=== PATIENT | female | born 1935 | race Caucasian/White ===

== ENCOUNTER 2020-03-17 06:33 | Observation (INO) ==
[2020-03-10 15:21] LABS: Appearance,Urine CLEAR; Bacteria,Urine MOD /hpf (0); Bilirubin,Urine NEG (NEG); Color,Urine YELLOW; Culture Indicated,Urine YES; Glucose,Urine (UA) NEGATIVE (NEG); Ketones,Urine 5/TR mg/dL (NEG); Leukocyte Esterase,Urine NEG /uL (NEG); Mucus,Urine FEW /hpf (0); Nitrate,Urine NEG (NEG); Protein,Urine NEG (NEG); Specific Gravity,Urine 1.024 (1.000-1.035); Urine Blood 0.03 mg/dL (<0.03); Urine Hyaline Cast 2 /lpf (0-2); Urine RBC 1 /hpf (0-1); Urine Squamous Epithelial Cell 2 /hpf (0-4); Urine Transitional Epi Cells < 1 /hpf (0-2); Urine WBC 2 /hpf (0-4); Urobilinogen,Urine NEG (NEG)
[2020-03-10 18:00] LABS: Basophils # (Auto) 0.04 K/mcL (0.00-0.30); Basophils % (Auto) 0.6 % (0.0-2.0); Eosinophils % (Auto) 1.4 % (0.0-7.0); Granulocytes % (Auto) 69.2 % (38.0-78.0); Hematocrit 40.7 % (34.1-44.9); Hemoglobin 12.7 g/dL (11.2-15.7); Lymphocytes % (Auto) 23.4 % (15.5-49.0); Mean Cell Volume 93.3 fL (80.0-100.0); Mean Corpuscular HGB Conc 31.2 g/dL (31.0-36.0); Mean Platelet Volume 10.3 fL (7.4-10.4); Monocytes # (Auto) 0.39 K/mcL (0.10-0.90); Monocytes % (Auto) 5.4 % (1.0-12.0); Platelet Count 268 K/mcL (140-440); RBC 4.36 M/mcL (3.59-5.38); Red Cell Distribution Width 14.8 % (11.5-14.5); WBC 7.3 K/mcL (4.50-11.00)
[2020-03-10 18:08] LABS: ALT/SGPT 12 U/l (0-40); AST/SGOT 20 U/l (0-37); Albumin 4.3 gm/dL (3.2-5.2); Albumin/Globulin Ratio 1.9 (1.0-2.3); Alkaline Phosphatase 64 U/L (39-117); Bilirubin,Total 0.4 mg/dL (0.0-1.0); Blood Urea Nitrogen 19 mg/dl (8-23); Calcium 9.4 mg/dl (8.6-10.4); Carbon Dioxide 22 mmol/L (22-30); Chloride 104 mmol/L (96-108); Globulin 2.3 gm/dL (2.2-3.7); Glomerular Filtration Rate 84; Glucose 80 mg/dL (70-105)
[2020-03-10 18:14] LABS: Estimated Average Glucose(eAG) 100 mg/dL; Hemoglobin A1C 5.1 % HGB (4.0-6.0)
[2020-03-10 18:21] LABS: INR 3.2 (0.9-1.1); Prothrombin Time 33.5 sec (11.9-14.5)
[~2020-03-17 06:33] MED LIST: 0.9 % SODIUM CHLORIDE 9 ML, KETOROLAC 30 MG, ROPIVACAINE HCL/PF 49.5 ML, EPINEPHrine 0.... IJ SCH; CELECOXIB 200 MG CAPSULE PO SCH; PREGABALIN 75 MG CAPSULE PO SCH; ceFAZolin 2 GM in DEXTROSE 5% IN WATER 50 ML IV SCH; oxyCODONE 10 MG TAB.ER.12H PO SCH
[2020-03-17] MEDS ORDERED: IPRATROPIUM/ALBUTEROL 3 ML AMPUL.NEB NEB PRN ×2 (07:00→11:52)
[2020-03-17] MEDS ORDERED: SCOPOLAMINE 1 PATCH PATCH TOPICAL PRN (07:00)
[2020-03-17 07:49] LABS: POC INR 1.5 (0.9-1.2); POC Pro Time 18.2 sec (11.9-14.5)
[2020-03-17] MEDS ORDERED: TRANEXAMIC ACID 1,000 MG/10 ML VIAL IV ONE ×2 (09:14→10:40)
[2020-03-17] MEDS ORDERED: ONDANSETRON 4 MG/2 ML VIAL IV ONE (09:14)
[2020-03-17] MEDS ORDERED: GLYCOPYRROLATE 0.2 MG/ML VIAL IV ONE (09:14)
[2020-03-17] MEDS ORDERED: DEXAMETHASONE 10 MG/ML VIAL IV ONE (09:14)
[2020-03-17] MEDS ORDERED: PHENYLEPHRINE 10 MG/ML VIAL IV ONE (09:14)
[2020-03-17] MEDS ORDERED: PROPOFOL 200 MG/20 ML VIAL IV ONE (09:14)
[2020-03-17] MEDS ORDERED: KETAMINE 100 MG/ML ML IV ONE (09:14)
[2020-03-17] MEDS ORDERED: MIDAZOLAM 2 MG/2 ML VIAL IV ONE (09:14)
[2020-03-17] MEDS ORDERED: LIDOCAINE HCL/PF 100 MG/5 ML SYRINGE IV ONE (09:14)
[2020-03-17] MEDS ORDERED: ROPIVACAINE HCL/PF 20 ML VIAL IJ ONE (09:14)
[2020-03-17] MEDS ORDERED: POLYETHYLENE GLYCOL 3350 17 GM PACKET PO PRN (10:40)
[2020-03-17] MEDS ORDERED: BENZOCAINE/MENTHOL 1 LOZENGE PO PRN (10:40)
[2020-03-17] MEDS ORDERED: BISACODYL 10 MG SUPP.RECT PR PRN (10:40)
[2020-03-17] MEDS ORDERED: MAGNESIUM HYDROXIDE 30 ML ORAL.SUSP PO PRN (10:40)
[2020-03-17] MEDS ORDERED: ONDANSETRON 4 MG/2 ML VIAL IV PRN ×2 (10:40→11:52)
[2020-03-17] MEDS ORDERED: HYDROmorphone 1 MG/ML SYRINGE IV PRN (10:40)
[2020-03-17] MEDS ORDERED: FLEETS ADULT ENEMA PR PRN (10:40)
--- NOTE | 2020-03-17 10:40 | Brief Operative Note ---
Brief Operative Note Date of procedure: 03/17/20 Pre-op diagnosis: Left knee severe DJD Post-op diagnosis: same Procedure: Left total knee arthroplasty Grafts/Implants: Yes ([place] Triathlon CR 3 femur, 4 tibia, 10mm CR insert, 33 patella) Anesthesia: spinal and GLMA Findings: hemarthrosis, severe arthritis Complications: none Surgeon: Octaviano Quiroga Circle Edger: Chavo Hernandez Estimated blood loss (cc): 30 Specimens Removed/Pathology: none sent Condition: stable Disposition: PACU
[2020-03-17] MEDS ORDERED: traMADol 50 MG TABLET PO PRN (10:43)
[2020-03-17] MEDS ORDERED: MEPERIDINE 25 MG/ML SYRINGE IV PRN (11:52)
[2020-03-17] MEDS ORDERED: fentaNYL 100 MCG/2 ML VIAL IV PRN (11:52)
[2020-03-17] MEDS ORDERED: ACETAMINOPHEN 1,000 MG/100 ML BOTTLE IV ONE (11:52)
[2020-03-17] MEDS ORDERED: LACTATED RINGERS 1,000 ML IV SCH (12:00)
--- NOTE | 2020-03-17 12:24 | Operative Note ---
DATE OF OPERATION: 03/17/2020 PREOPERATIVE DIAGNOSIS: Left knee severe osteoarthritis. POSTOPERATIVE DIAGNOSIS: Left knee severe osteoarthritis. PROCEDURE PERFORMED: Left total knee arthroplasty placing a [place] Triathlon size 3 cruciate retaining femoral component, size 4 tibial baseplate, a 10 mm X3 CR insert with a 33 mm patellar button. SURGEON: Octaviano Quiroga MD GYM ATTENDANT: Matheus Hernandez PA-C. This provider's expertise and technical skill were required throughout the case. The PA assisted with preoperative coordination, intraoperative retraction, wound closure, dressing and splint application, as well as postoperative documentation and care coordination. SECOND GYM ATTENDANT: Miko Bailon PA-C. This provider's expertise and technical skill were required throughout the case. The PA assisted with preoperative coordination, intraoperative retraction, wound closure, dressing and splint application, as well as postoperative documentation and care coordination. ANESTHESIA: General LMA. DRAINS: None. SPECIMENS: Bone cuts, which were discarded. BLOOD LOSS: 50 mL COMPLICATIONS: None. POSTOPERATIVE CONDITION: Stable. INDICATIONS FOR SURGERY: This is an 84-year-old female who had longstanding progressive worsening severe left knee pain. Radiographs showed [id number] valgus deformed osteoarthritis. FINDINGS AT SURGERY: She had a large hemarthrosis. Post implantation showed good limb alignment, patellar tracking, and joint stability. PROCEDURE IN DETAIL: The patient had been seen preoperatively. Informed consent had been obtained after discussion of risks and benefits of surgery. Risks including, but not limited to, bleeding; infection; injury to nerves, blood vessels, other surrounding structures; anesthetic risks; incomplete or no resolution of symptoms; DVT and pulmonary embolus risks; and the possibility of needing further revision joint surgery. She understood and wished to proceed. Correct operative site was marked and the patient was taken to the operating room. General anesthesia induced. The left lower extremity was carefully prepped and draped in normal sterile fashion. A timeout was performed verifying patient name, operative site, and plan. Esmarch was used to exsanguinate the extremity and tourniquet was inflated. Ioban was used to cover all skin surfaces. A midline incision was made with a scalpel through skin and subcutaneous tissue. Hemostasis was obtained with Bovie cautery. IrriSept was irrigated and then a medial parapatellar arthrotomy made. A hemarthrosis was aspirated. We went ahead and did a subperiosteal exposure of the anterior medial tibia and then removed the medial and lateral menisci. ACL was transected. We also used Bovie to expose the distal anterior cortex of the femur. A drill hole was made in the femur and tibia and then a flexible IM randy was passed up. A 5 degree valgus cut angle with 8 mm resection depth was placed and we pinned a distal cutting block in position. We made our distal femur cut and then marked Doc's line epicondylar axis. A sizer guide was placed and pinned in position. It took 5 degrees external rotation to match her anatomy and she sized to a 3. We drilled the holes and then placed a size 3 4-in-1 block. We made our anterior cut, which was flush, so we went ahead and made our posterior and chamfer cuts. The tibia was subluxed forward and posterior horns of the meniscus removed. The IM randy was passed down with the stylus off the medial side 2 mm. We pinned this into place and then made our tibial cut. This came out just below the worn surface of the lateral tibial plateau. We sized this to a 4 and externally rotated as bone coverage was allowed. We pinned this into place and prepared with the boss reamer and keel punch and then a keeled tibial trial was placed. Femur was elevated and a femur trial was placed and pinned into position. We drilled our peg holes and then trialed the 9 insert. This snapped in fairly easily. The knee was taken into extension and then we measured the patella and then resected, sized this to a 33, which was medialized and then holes drilled. The 33 trial was placed and then the lateral facetectomy was performed with the patella saw. We then checked our range of motion. It was good with good patellar tracking, so we went ahead and removed trial implants. Definitive implants were opened. We irrigated the joint with IrriSept and then antibiotic cement was mixed. We then pulse lavaged copiously with saline and then a CO2 gun was used to clean and dry the cancellous bone surface. We cemented the tibia. Excess cement was removed. We then cemented the femoral component and excess cement removed. A 9 insert trial was placed and the knee was taken into extension and the patellar button was cemented. The joint was filled with IrriSept and then we injected pain cocktail in the pericapsular and subcutaneous tissues. After cement had fully hardened, we pulse lavaged copiously with saline. We flexed the knee up and removed the trial insert. We injected the remainder of the pain cocktail in the posterior medial capsule and I went with a 10 mm insert for a little bit better stability. This was impacted, and the knee was good and stable. We then filled the joint with IrriSept again, after a minute pulse lavaged with saline and the knee was flexed up to about 45 degrees. Interrupted #2 FiberWire [id number] around the superior quadrant of the patella, interrupted #1 Vicryl [id number] was used around the inferior quadrant, and running #1 Vicryl was used for patellar tendon and quad tendon. We then did a final IrriSept irrigation, after a minute final pulse lavage, and then 2-0 Monocryl was used for subcutaneous and silverio for skin. Xeroform and sterile dressing were applied. Tourniquet was released. The patient was awakened, extubated, and transferred to recovery in stable condition. [id number]:[email or web address] Job ID: [id number] Doc ID: [id number] Octaviano Quiroga MD
[2020-03-17] MEDS: 0.9 % SODIUM CHLORIDE 1,000 ML IV SCH (12:33)
[2020-03-17] MEDS: KETOROLAC 15 MG/ML VIAL IV SCH ×3 (12:49→23:43)
--- NOTE | 2020-03-17 12:58 | XRay Report ---
CLINICAL INFORMATION: Post-op total knee COMPARISON: None. FINDINGS: Total knee prostheses is anatomically aligned. No osseous abnormality. Moderate periarticular gas and soft tissue swelling seen. IMPRESSION: Total knee prosthesis in anatomic alignment. Interpreted and Authenticated by: Maldonado Gonzalez 03/17/20
[2020-03-17] MEDS ORDERED: PRAMIPEXOLE 0.25 MG TABLET PO ONE (13:10)
[2020-03-17] MEDS: 0.9 % SODIUM CHLORIDE 10 ML SYRINGE IV SCH ×2 (13:11→22:43)
[2020-03-17] MEDS: oxyCODONE/APAP 5/325MG TABLET PO PRN ×3 (13:26→21:43)
[2020-03-17] MEDS: ceFAZolin 1 GM VIAL IV SCH (17:22)
[2020-03-17] MEDS: PRAMIPEXOLE 0.25 MG TABLET PO SCH (20:32)
[2020-03-17] MEDS: DOCUSATE SODIUM 100 MG CAPSULE PO SCH (20:32)
[2020-03-17] MEDS: SENNOSIDES 1 TABLET PO SCH (20:32)
[2020-03-18] MEDS: ceFAZolin 1 GM VIAL IV SCH (01:13)
[2020-03-18] MEDS: 0.9 % SODIUM CHLORIDE 1,000 ML IV SCH ×2 (02:01→12:55)
[2020-03-18] MEDS: oxyCODONE/APAP 5/325MG TABLET PO PRN ×4 (03:49→23:27)
[2020-03-18] MEDS: KETOROLAC 15 MG/ML VIAL IV SCH ×4 (05:37→23:50)
[2020-03-18] MEDS: 0.9 % SODIUM CHLORIDE 10 ML SYRINGE IV SCH ×2 (05:38→13:47)
[2020-03-18 06:52] LABS: Hematocrit 30.6 % (34.1-44.9); Hemoglobin 9.6 g/dL (11.2-15.7)
[2020-03-18] MEDS: DOCUSATE SODIUM 100 MG CAPSULE PO SCH ×2 (08:44→20:37)
[2020-03-18] MEDS: WARFARIN 5 MG TABLET PO SCH (08:44)
--- NOTE | 2020-03-18 09:37 | Discharge Summary ---
Discharge Provider Provider Patient information: Note initiated : 03/18/20 at 9:36 am Service Date, if different from initiated Date: [] Patient: Macrina Walsh 84 y/o F admitted on for Left Total Knee Arthroplasty Augustus. Chief Complaint: [] Discharge date: 03/19/20 Primary care physician: Sarah Mullen COURSE Hospital Course Hospital course: Pt discharged to home post-op day 2 s/p L TKA. Pt stayed an extra night due to difficulty with ambulation. Was high fall risk early on. Discharge diagnosis: L knee OA Time Spent with Patient Time attestation: Total time spent providing and/or coordinating discharge services: Physical Examination Narrative Exam Narrative: Pt having difficulty with walking and balance. Exam Incision draining: Yes (Mild bloody drainage) Weight bearing status: as tolerated Discharge Instructions - TKA Patient Instructions Total Knee Protocol: For Total Knee: Start ROM GHAZALA with stationary bike or rocking chair. Work on gaining full extension of knee. Posterior dislocation precautions provided. Hip abductor strengthening and gait training instructions provided. Apply Cryocuff as instructed. Discharge Plan Patient/Caregiver Discharge Instructions Activity: as per physical therapy, increase activity as tolerated and resume usual activities as tolerated Instructions: Oxycodone/Acetaminophen (By mouth) Prescriptions: New oxycodone-acetaminophen 5-325 mg Tablet 1 - 2 tab PO Q4-6HP PRN (Reason: pain) Qty: 60 RF: 0 (DME) Ultra-Light Rollator 1 EACH misc 1 ea MC ONCE Qty: 1 RF: 0 Continued tramadol 50 mg Tablet 50 mg PO Q8H PRN (Reason: Pain) RF: 0 acetaminophen [Tylenol Arthritis Pain] 650 mg Tablet Extended Release 650 mg PO Q12H PRN (Reason: Pain) RF: 0 warfarin 5 mg Tablet 5 mg PO QDAY RF: 0 pramipexole 0.125 mg Tablet 0.125 mg PO QHS RF: 0 Glucosamine Complex-MSM Capsule 1 cap PO DAILY RF: 0 sulfamethoxazole-trimethoprim tablet miscellaneous BID RF: 0 Other Ambulatory Orders: Physical Therapy at Discharge - TKA (Routine) Location: None Selected Ordered By: Chavo Hernandez Follow Up Plan Patient Disposition: Home, Self-Care Plan of Treatment: Pt may discharge later today if ambulation improves, otherwise will keep for one more night for continued PT and safety. Rehab Potential: Good Overall status at discharge: patient is progressing back to baseline Discharge Orders: Discharge Order (Routine); Ordered 03/18/20 Ordered By: Chvao Hernandez Pending Pending Pending: Resuscitation Status Limited Code Diet Regular Diet Start FriMar 17 1041 Docusate Sodium (Colace) 100 mg PO BID [facility] Last Admin: 03/18/20 08:44 Dose: 100 mg Documented by: Admin: 03/17/20 20:32 Dose: 100 mg Documented by: SAMANTHA Hydromorphone HCl (Dilaudid) 0 mg IV Q2HP PRN; Protocol PRN Reason: Per Pain Protocol Last Admin: 03/17/20 22:48 Dose: 0.5 mg Documented by: SAMANTHA Sodium Chloride (Sodium Chloride 0.9%) 1,000 mls @ 75 mls/hr IV .[id number] [facility] Last Admin: 03/18/20 02:01 Dose: 75 mls/hr Documented by: Infusion: 03/18/20 01:53 Dose: 75 mls/hr Documented by: Admin: 03/17/20 12:33 Dose: 75 mls/hr Documented by: AIME Ketorolac Tromethamine (Toradol) 15 mg IV Q6 [facility] Stop: 03/19/20 06:01 Last Admin: 03/18/20 05:37 Dose: 15 mg Documented by: Admin: 03/17/20 23:43 Dose: 15 mg Documented by: Admin: 03/17/20 17:33 Dose: 15 mg Documented by: Admin: 03/17/20 12:49 Dose: 15 mg Documented by: AIME Oxycodone/Acetaminophen (Percocet 5-325 Mg) 0 tab PO Q4HP PRN; Protocol PRN Reason: Per Pain Protocol Last Admin: 03/18/20 03:49 Dose: 1 tab Documented by: Admin: 03/17/20 21:43 Dose: 1 tab Documented by: Admin: 03/17/20 19:39 Dose: 1 tab Documented by: Admin: 03/17/20 13:26 Dose: 1 tab Documented by: JARON Pramipexole Dihydrochloride (Mirapex) 0.125 mg PO QHS [facility] Last Admin: 03/17/20 20:32 Dose: 0.125 mg Documented by: SAMANTHA Senna (Senokot) 2 tab PO HS [facility] Last Admin: 03/17/20 20:32 Dose: 2 tab Documented by: SAMANTHA Sodium Chloride (Saline Flush) 10 ml IV Q8 [facility] Last Admin: 03/18/20 05:38 Dose: Not Given Documented by: Admin: 03/17/20 22:43 Dose: Not Given Documented by: Admin: 03/17/20 13:11 Dose: Not Given Documented by: JARON Warfarin Sodium (Coumadin) 5 mg PO QDAY [facility] Last Admin: 03/18/20 08:44 Dose: 5 mg Documented by: AIME Shift Summary 03/18/20 02:15 Shift Summary by Tamara Wolf Patient alert and oriented but forgetful at times. More awake this shift. Medicated with Percocet 5 1tab x2,scheduled Toradol and PRN Dilaudid 0.5mg x1 with moderate effect pain 4-6/10. Patient eating and drinking well. IVF NS @ 75mls infusing well on LFA will saline lock close to shift change. Patient very unsteady. Gets up with 2 assist FWW and gait belt transfer to bedside commode. Fajardo catheter in place, draining bright yellow urine, to discontinue fajardo tomorrow. Left knee dressing with old,dried drainage on marco wrap. No further bleeding noted on shift. Cryo-cuff applied. Given breaks with foot pumps per patient request states it aggravates her restless legs. Given HS Mirapex last night. Up at side of bed, legs dangled twice due to restless legs. Patient started sleeping at 2300H. VSS. Initialized on 03/18/20 02:15 - END OF NOTE
[2020-03-18] MEDS ORDERED: ENOXAPARIN 30 MG/0.3 ML SYRINGE SQ ONE (12:00)
[2020-03-18] MEDS: SENNOSIDES 1 TABLET PO SCH (20:37)
[2020-03-18] MEDS: PRAMIPEXOLE 0.25 MG TABLET PO SCH (20:38)
[2020-03-19] MEDS: 0.9 % SODIUM CHLORIDE 10 ML SYRINGE IV SCH ×2 (02:20→05:38)
[2020-03-19] MEDS: oxyCODONE/APAP 5/325MG TABLET PO PRN ×2 (02:47→11:13)
[2020-03-19] MEDS: KETOROLAC 15 MG/ML VIAL IV SCH (05:38)
[2020-03-19] MEDS: 0.9 % SODIUM CHLORIDE 1,000 ML IV SCH (06:17)
[2020-03-19 08:35] LABS: Hemoglobin 10.2 g/dL (11.2-15.7)
--- NOTE | 2020-03-19 08:35 | Orthopedic Progress Note ---
SUBJECTIVE Subjective Patient information: Note initiated : 03/19/20 at 8:32 am Service Date, if different from initiated Date: [] Patient: Macrina Walsh 84 y/o F admitted on 03/18/20 for Left Total Knee Arthroplasty Augustus. Chief Complaint: Mild bloody drainage. Mild to moderate pain. Constitutional Vitals: Vital Signs Temp Pulse Resp BP Pulse Ox 97.8 F 81 16 128/77 92 03/19/20 07:52 03/19/20 07:52 03/19/20 07:52 03/19/20 07:52 03/19/20 07:52 Period Temp Pulse Resp BP Sys/Wong Pulse Ox Last 24 Hr 97.4 F-99.2 F 71-81 12-16 95-139/60-77 91-96 Intake and Output 03/18/20 03/19/20 03/19/20 21:59 05:59 13:59 Intake Total 120 240 Output Total 150 Balance -30 240 Weight 135 lb 8 oz Intake & Output: Intake & Output 03/18/20 03/19/20 03/19/20 21:59 05:59 13:59 Intake Total 120 240 Output Total 150 Balance -30 240 Weight 135 lb 8 oz Intake: Oral 120 240 Output: Void Amount 150 Other: Meal Dinner Percent of Meal Consumed 100% Urine Appearance Clear Clear Clear Urine Color Pale Pale Bright Yellow Urine Odor Normal Strong # Voids 1 1 2 OBJ DATA Labs CBC & Chem 7: 03/18/20 05:30 03/10/20 13:48 Labs: Abnormal Lab Results 03/18/20 03/17/20 05:30 07:44 Hgb 9.6 L Hct 30.6 L POC PT 18.2 H POC INR 1.5 H Bandages mild bloody drainage. NVI-distal Meds: Medications Bisacodyl (Dulcolax) 10 mg CA Q2-3DAYS PRN PRN Reason: Constipation Docusate Sodium (Colace) 100 mg PO BID [facility] Last Admin: 03/18/20 20:37 Dose: 100 mg Documented by: Hydromorphone HCl (Dilaudid) 0 mg IV Q2HP PRN; Protocol PRN Reason: Per Pain Protocol Last Admin: 03/17/20 22:48 Dose: 0.5 mg Documented by: Magnesium Hydroxide (Milk Of Magnesia) 30 ml PO BIDP PRN PRN Reason: Constipation Ondansetron HCl (Zofran) 4 mg IV Q4HP PRN; Protocol PRN Reason: Nausea And Vomiting Oxycodone/Acetaminophen (Percocet 5-325 Mg) 0 tab PO Q4HP PRN; Protocol PRN Reason: Per Pain Protocol Last Admin: 03/19/20 02:47 Dose: 1 tab Documented by: Polyethylene Glycol (Miralax) 17 gm PO DAILYP PRN PRN Reason: Constipation Pramipexole Dihydrochloride (Mirapex) 0.125 mg PO QHS [facility] Last Admin: 03/18/20 20:38 Dose: 0.125 mg Documented by: Senna (Senokot) 2 tab PO HS [facility] Last Admin: 03/18/20 20:37 Dose: 2 tab Documented by: Sodium Biphosphate/Sodium Phosphate (Fleets Adult) 1 dose CA Q3-4DAYS PRN PRN Reason: Constipation Sodium Chloride (Saline Flush) 10 ml IV Q8 [facility] Last Admin: 03/19/20 05:38 Dose: 10 ml Documented by: Throat Lozenges (Cepacol) 1 lozenge PO PRN PRN PRN Reason: Sore Throat Tramadol HCl (Ultram) 50 mg PO Q8H PRN PRN Reason: Pain Last Admin: 03/18/20 09:53 Dose: 50 mg Documented by: Warfarin Sodium (Coumadin) 5 mg PO QDAY [facility] Last Admin: 03/18/20 08:44 Dose: 5 mg Documented by: A/P Assessment and plan (1) Total knee replacement status: Status: Acute Comment: post-op day 2 s/p TKA. likely discharge today to home after PT assuming she ambulates well. Time Spent With Patient Time: Total time spent is greater than 50% in coordination of care (as documented) at patient's floor/unit and/or counseling patient:
[2020-03-19] MEDS: DOCUSATE SODIUM 100 MG CAPSULE PO SCH (09:06)
[2020-03-19] MEDS: WARFARIN 5 MG TABLET PO SCH (09:07)
== END 2020-03-19 12:31 | disposition home or self-care (01) ==
LOC: MEDSUROUT 06:33 → MEDSUR 06:33
PROVIDERS: ADMIT Orthopaedic Surgery; ATTEND Orthopaedic Surgery